=== PATIENT | female | born 1995 | race Caucasian/White ===

== ENCOUNTER 2022-09-01 12:33 | Emergency (ER) | payer OTHER ==
[~2022-09-01] VITALS: Ht 162.6 cm; Wt 81.6 kg
[2022-09-01 12:42] VITALS: BP 128/76
--- NOTE | 2022-09-01 12:50 | NUR ---
PT AMBULATED TO BED 12.
--- NOTE | 2022-09-01 13:32 | NUR ---
XRAY AT BEDSIDE.
[2022-09-01 14:26] LABS: BASOPHILS % (AUTO) 0.2 % (0.0-2.0); EOSINOPHILS % (AUTO) 0.6 % (0.0-4.0); HEMATOCRIT 41.7 % (36-48); LYMPHOCYTES % (AUTO) 14.7 % (20.5-51.1); MEAN CORPUSCULAR HEMOGLOBIN 31 pg (27-31); MEAN CORPUSCULAR HGB CONC 34 g/dL (33-37); MEAN CORPUSCULAR VOLUME 93.5 fL (80-94); MONOCYTES # (AUTO) 0.5 K/uL (0.8-1.0); MONOCYTES % (AUTO) 7.1 % (1.7-9.3); NEUTROPHILS % (AUTO) 77.4 % (42.2-75.2); PLATELET COUNT (AUTO) 216 K/uL (140-450); RED BLOOD CELL COUNT(AUTO) 4.46 MIL/uL (4.20-5.40); WHITE BLOOD COUNT (AUTO) 6.4 K/uL (4.8-10.8)
[2022-09-01] MEDS ORDERED: BENZONATATE 100 MG CAPLF PO ONE (14:55)
[2022-09-01 15:05] LABS: ALBUMIN 4.2 g/dL (3.4-5.0); CARBON DIOXIDE 29.9 mmol/L (21-32); CREATININE 0.7 mg/dL (0.6-1.3); POTASSIUM 3.9 mmol/L (3.5-5.1); TOTAL BILIRUBIN 0.5 mg/dL (0.0-1.0)
[2022-09-01 16:30] VITALS: BP 113/73
[2022-09-01] MEDS ORDERED: AZIT250T4 PO (16:38)
[2022-09-01] MEDS ORDERED: BENZ200C4 PO (16:38)
[2022-09-01] MEDS ORDERED: AMOX500C25 PO (16:38)
--- NOTE | 2022-09-01 16:47 | NUR ---
Patient discharged with v/s stable. Written and verbal after care instructions ABOUT COMMUNITY ACQUIRED PNEUMONIA given and explained. Patient alert, oriented and verbalized understanding of instructions. Ambulatory with steady gait. All questions addressed prior to discharge. ID band removed. Patient advised to follow up with PMD. Rx of AMOXICILLIN, AZITHROMYCIN AND BENZONATATE given. Patient educated on indication of medication including possible reaction and side effects. Opportunity to ask questions provided and answered.
== END 2022-09-01 16:47 | disposition home or self-care (01) ==
LOC: MED 12:33
DX: J18.9 Pneumonia, unspecified organism (principal); Z20.822 Contact with and (suspected) exposure to COVID-19; R11.10 Vomiting, unspecified; Z79.899 Other long term (current) drug therapy
CPT/HCPCS: 36415; 71045; 80053; 83880; 84484; 85025; 87426; 87804; 93005; 99285; Q0092